=== PATIENT | male | born 1995 | race Hispanic/Latino ===

== ENCOUNTER → 2025-08-06 | Day surgery (SDC) | payer OTHER ==
[~2025-08-06] MED LIST: ACETAMINOPHEN 1000 MG/100 ML 100 ML IV ONE; BUPIVACAINE LIPOSOME/PF 266 MG/20 ML IJ ONE; EPHEDRINE SULFATE INJ 50 MG/ML VIAL ONE; FAMOTIDINE 20 MG/2 ML VIAL IV ONE; FENTANYL CITRATE/PF 100MCG/2 ML INJ ONE; LIDOCAINE HCL 2% LOCAL INJ 5 ML SDV VIAL INJ ONE; PROPOFOL IV EMULSION 10 MG/ML 20 ML VIAL ONE; ROCURONIUM BROMIDE 1 ML IV ONE; SUCCINYLCHOLINE CHLORIDE 20 MG/ML 10ML VIAL ONE; SUGAMMADEX SODIUM 200 MG/2 ML VIAL IV ONE
[2025-08-06] MEDS: CEFAZOLIN SODIUM 2 GM ONE (06:21)
[2025-08-06] MEDS: LACTATED RINGER'S 1,000 ML ONE (06:21)
[2025-08-06] MEDS: KETOROLAC TROMETHAMINE 30 MG/ML VIAL ONE (10:40)
[2025-08-06] MEDS: HYDROMORPHONE 1MG/1ML INJ ONE (10:45)
[2025-08-06] MEDS: HYDROCODONE/APAP 7.5MG-325MG 1 EA TAB ONE (11:09)
[2025-08-06 11:45] VITALS: BP 134/89; PULSE 66; RESP 18; O2SAT 99
== END | disposition home or self-care (01) ==
LOC: OR 05:28
PROVIDERS: ATTEND Orthopaedic Surgery Sports Medicine
DX: S83.512A Sprain of anterior cruciate ligament of left knee, initial encounter (principal); S83.222A Peripheral tear of medial meniscus, current injury, left knee, initial encounter; S83.272A Complex tear of lateral meniscus, current injury, left knee, initial encounter; X50.0XXA Overexertion from strenuous movement or load, initial encounter; Y93.68 Activity, volleyball (beach) (court); Y92.096 Garden or yard of other non-institutional residence as the place of occurrence of the external cause; F10.21 Alcohol dependence, in remission; Z68.31 Body mass index [BMI] 31.0-31.9, adult
CPT/HCPCS: 29883; 29888; J0131; J0330; J0666; J1171; J1308; J1885; J2003; J2704; J3010; J7121